=== PATIENT | female | born 2000 ===

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

== ENCOUNTER 2022-11-07 07:36 | Inpatient (IN) ==
[2022-11-07] MEDS ORDERED: OXYTOCIN 30 UNITS/500 ML BAG IV PRN ×2 (07:46)
[2022-11-07] MEDS ORDERED: LIDOCAINE 1% LOCAL 20 ML VIAL INFIL PRN (07:46)
[2022-11-07 08:14] LABS: Hemoglobin 10.2 g/dl (12.0-16.0); Mean Corpuscular Hemoglobin 26.6 pg (25.0-34.0); Mean Corpuscular Hgb Conc 32.9 g/dL (32.0-36.0); Mean Corpuscular Volume 80.7 fL (80.0-100.0); Mean Platelet Volume 10.9 fL (9.4-12.4); Platelet Count 293 K/uL (130-400); RDW Coefficient of Variation 14.8 % (11.5-14.5); RDW Standard Deviation 42.2 fL (36.4-46.3); Red Blood Count 3.84 M/uL (4.20-5.40); White Blood Count 8.04 K/ul (4.8-10.8)
--- NOTE | 2022-11-07 08:40 | History & Physical Report ---
Date of Service November 07, 2022 Assessment & Plan (1) Encounter for induction of labor: (2) Insulin controlled gestational diabetes mellitus (GDM) during : Plan - Patient admitted to labor and delivery for initiation of medical induction of labor - [address] De La Cruz on 11/06/22, recheck pending - Patient w/o evidence of contractions, thus oxytocin augmentation of labor will be started per protocol - Once contractions are progressing, will consider ROM - Will anticipate epidural as contractions arise - Labs pending, follow BSG Admission and Anticipated Discharge Date Admission Date: November 07, 2022 History of Present Illness Chief Complaint: Induction Primary Care Provider: Baylee Beckwith Hanny is a 22 year old female currently EGA 39 12/21 with TIA 11/10/22 determined by US presenting to L&D for induction of labor. Complications: GDM (on insulin), hx of gHTN, Rubella non-immune Reason for Induction/: GDM Movement: Yes Fluid Loss/ROM: None Bloody show/discharge: Small mucous discharge External FHT and uterine monitor: Category 1, tracing reactive, good FHT variability (acels w/o dcels), no contractions Last OB appointment: 11/06, regular care Ssis Ssrs Developer Hx: No hx of abnormal pap, hx of Chlamydia, no additional STIs Labs: Blood Type: A+ Antibody Screen: Negative Hg/Hct (today): Pending WBC/Plt (today): Pending Rubella: Non-Immune RPR: Non-reactive Gonorrhea: Negative Chlamydia: Negative HIV: Negative HbSAg: Negative GBS: Negative Cff-SMA: Low risk ROS: - Denies fever, chills, sweats - Denies dyspnea or pleuritic pain - Denies chest pain, palpitations, or pressure - Denies breast pain - Denies dysuria - Denies headache or visual changes Allergies Allergy/AdvReac Type Severity Reaction Status Date / Time No Known Drug Allergies Allergy Verified 11/06/22 13:09 Home Medications Medication Instructions Recorded Confirmed Type prenat.vits,dionisio,bsz-srex-ggumi 1 tab PO DAILY 04/13/19 11/06/22 History acetone (urine) test (Ketone Urine #50 ea 09/21/22 11/06/22 Rx Test strips) blood sugar diagnostic (OneTouch #150 ea 09/21/22 11/06/22 Rx Verio test strips) blood-glucose meter (OneTouch #1 ea 09/21/22 11/06/22 Rx Verio Reflect Meter) lancets 33 gauge (OneTouch Delica #150 ea 09/21/22 11/06/22 Rx Lancets) pen needle, diabetic 32 gauge x #50 ea 10/08/22 11/06/22 Rx 5/32" (BD Ria 2nd Gen Pen Needle) insulin NPH isoph U-100 human 100 4 unit (0.04 mL) subcut QPM #1 box 10/10/22 11/06/22 Rx unit/mL (3 mL) subcutaneous pen (Novolin N FlexPen) Patient History Medical History (Updated 11/07/22 @ 08:38 by Sal Buck DO) Gestational hypertension Surgical History S/P wisdom tooth extraction Family History Aunt No problems noted. Grandmother (Maternal) Anxiety Depression Endometriosis Father Drinking problem Hypertension Grandfather (Maternal) Cardiac disorder Diabetes Hypertension Brother Congenital heart disorder Down syndrome Hypertension Other Thyroid disease Social History (Updated 03/29/22 @ 13:59 by Melina Whiting) Smoking Status: Current every day smoker packs per day: 0.5; Cigarettes Per Day: 3-4 a day; Second Hand Exposure: Yes; Hx Alcohol Use: No Hx Substance Use: No Preferred Language: Jordanian Communication Ability: Effective Cost Estimating Engineer Required: No Beliefs That Will Affect Care: None marital status: Single marital status details: FOB: Trace ([birth year]) [phone] Current Living Situation: Family Current Living Situation Comment: lives with MOM, her firend, 2 brothers, step borther, step sister, bf, chil current occupational status: employed current occupation: Emotional support person Other Information That Helps Us Care for You: No Feels Safe at Home: Yes Safety Concerns: Feels Safe At This Time Assistive Devices: None Physical Exam Physical Exam: General: Alert, oriented. No acute distress. Cardiac: Regular rate and rhythm, no murmurs/rubs/gallops. Respiratory: Clear to auscultation bilaterally a/p, no wheezes/rales/rhonchi. No increased work of breathing. Symmetrical chest rise. No respiratory distress. Abdomen: Gravid; reactive FHTs; Position: Vertex by Pj Maneuver Pelvic: /-[address] De La Cruz on 11/06/22 Lower Extremities: No lower extremity edema or swelling. No deep calf pain. Yoshi's negative bilaterally. Supervising Physician Co-Signing Physician Notes patient seen with resident and agree with the above findings and plan. Resident Activity Tracking Resident Involvement: Resident Care Provided Care Provided: OB Delivery
[2022-11-07] MEDS: LACTATED RINGER'S 1,000 ML IV PRN ×3 (08:59→21:27)
[2022-11-07] MEDS ORDERED: BUPIVACAINE 0.25% 30 ML VIAL ONE (15:30)
[2022-11-07] MEDS ORDERED: ePHEDrine sulfate 50 MG/ML AMP ONE (15:30)
[2022-11-07] MEDS ORDERED: fentaNYL citrate 100 MCG/2 ML VIAL ONE (15:30)
[2022-11-07] MEDS ORDERED: LIDOCAINE 2%/EPINEPHRINE 1:200,000 20 ML SDV ONE (15:30)
[2022-11-07] MEDS ORDERED: SODIUM CHLORIDE 0.9% INJ 10 ML VIAL ONE (15:30)
[2022-11-07] MEDS ORDERED: fentaNYL 2MCG/ML ROPIVACAINE 1.25MG/ML 100 ML BAG EPI ONE (15:31)
--- NOTE | 2022-11-07 15:36 | Anesthesiology Consultation ---
Date of Service November 07, 2022 Assessment & Plan ASA ASA3 Proposed Anesthesia Anesthesia Type: Labor Epidural Risk / Benefits Reviewed With: PT / POA / Parent / Guardian, Accepts Plan and Informed Consent Obtained History Height/Weight Height: 5 ft 4 in Weight: 98.883 kg Allergies Allergy/AdvReac Type Severity Reaction Status Date / Time No Known Drug Allergies Allergy Verified 11/06/22 13:09 Medications Home Medications Medication Instructions Recorded Confirmed Last Taken prenat.vits,dionisio,tqj-prfn-decyn 1 tab PO DAILY 04/13/19 11/07/22 11/06/22 22:00 acetone (urine) test (Ketone Urine #50 ea 09/21/22 11/06/22 Unknown Test strips) blood sugar diagnostic (OneTouch #150 ea 09/21/22 11/06/22 Unknown Verio test strips) blood-glucose meter (OneTouch #1 ea 09/21/22 11/06/22 Unknown Verio Reflect Meter) lancets 33 gauge (OneTouch Delica #150 ea 09/21/22 11/06/22 Unknown Lancets) pen needle, diabetic 32 gauge x #50 ea 10/08/22 11/06/22 Unknown 532" (BD Ria 2nd Gen Pen Needle) insulin NPH isoph U-100 human 100 4 unit (0.04 mL) subcut QPM #1 box 10/10/2211/06/22 22:00 unit/mL (3 mL) subcutaneous pen (Novolin N FlexPen) Active Medications Generic Name Dose Route Start Last Admin Trade Name Freq PRN Reason Stop Dose Admin Lactated Ringer's 1,000 mls @ 125 mls/hr 11/07/22 07:46 11/07/22 16:00 Lr IV 11/09/22 07:45 125 mls/hr .Q8H PRN Infusion L&D Protocol Protocol Oxytocin 30 units in 500 mls @ 18 mls/hr 11/07/22 07:46 11/07/22 15:08 Pitocin IV 11/09/22 07:45 1.08 units/hr .Q24H PRN 18 mls/hr Labor Induction/Augmentation Titration Protocol 1.08 UNITS/HR Ropivacaine 100 ml 11/07/22 15:37 11/07/22 16:05 Fentanyl 2mcg/Ml Ropivacaine 1.25mg/Ml 100 Ml Bag EPI 11/08/22 15:36 100 ml PRN PRN Administration Pain R/T Labor Protocol Past Medical History Medical History Gestational hypertension Exercise / Class Metabolic Activity II 4-5 Yardwork/Stairs/Walk up hill Past Family History Family History Aunt No problems noted. Grandmother (Maternal) Anxiety Depression Endometriosis Father Drinking problem Hypertension Grandfather (Maternal) Cardiac disorder Diabetes Hypertension Brother Congenital heart disorder Down syndrome Hypertension Other Thyroid disease Past Surgical History Surgical History S/P wisdom tooth extraction Past Anesthesia History No Hx of Anesthesia Complications and No Family Hx of Anesthesia Complications History of PONV No Hx of PONV and No Hx of Motion Sickness Social History Smoking Status: Current every day smoker tobacco type: e-cigarettes Smoking cigarettes per day: 3-4 a day Hx Alcohol Use: No Alcohol type: wine Hx Substance Use: No substance use type: does not use Review of Systems denies fever/cough/ colds/ chest pain/ SOB/ TETO denies TETO Physical Exam Vital Signs Last Vital Signs Temp 37.0 C 11/07/22 15:10 Pulse 72 11/07/22 16:15 Resp 20 11/07/22 15:10 BP 138/65 11/07/22 16:12 Pulse Ox 99 11/07/22 16:15 ENMT Mouth: no TMJ abnormality and no dentition abnormality Thyromental Distance: > or= 3.5 Finger Breadths Mallampati Class: II Neck neck extension not limited Respiratory normal respiratory effort; no respiratory distress Auscultation: lungs clear to auscultation bilaterally Cardiovascular Rate/Rhythm: regular rate and regular rhythm Neurologic moves all extremities Psychiatric Orientation: alert and oriented x 3 Testing Laboratory Results 11/07/22 07:52 Blood Type A Positive 11/07/22 07:52 Antibody Screen NEGATIVE 11/07/22 07:52
[2022-11-07] MEDS ORDERED: NALBUPHINE HCL INJ 10 MG/ML AMP IV PRN (15:37)
[2022-11-07] MEDS ORDERED: ONDANSETRON INJ 2 MG/ML 2 ML VIAL IV PRN (15:37)
[2022-11-07] MEDS ORDERED: NALOXONE HCL 1 MG in SODIUM CHLORIDE 0.9% 1000ML 1,000 ML IV PRN (15:37)
[2022-11-07] MEDS ORDERED: NALOXONE HCL 0.4 MG/1 ML VIAL/CARP IV PRN (15:37)
[2022-11-07] MEDS ORDERED: diphenhydrAMINE 50 MG/ML VIAL IV PRN (15:37)
[2022-11-07] MEDS ORDERED: ePHEDrine sulfate 50 MG/ML AMP IV PRN (15:37)
[2022-11-07] MEDS: fentaNYL 2MCG/ML ROPIVACAINE 1.25MG/ML 100 ML BAG EPI PRN ×2 (16:05→22:50)
--- NOTE | 2022-11-07 16:42 | Labor Progress Brief Note ---
Date of Service November 07, 2022 Subjective Reason For Note: Routine Evaluation Assessment & Plan (1) Encounter for induction of labor: Plan: AROM clr, continue pitocin, Cat 1 tracing (2) Insulin controlled gestational diabetes mellitus (GDM) during : Admission and Anticipated Discharge Date Admission Date: November 07, 2022 Physical Exam Genitourinary: Manual OB Exam: + cervical dilation (2.5), + cervical effacement 70%, + station -1 and + amniotic fluid clear OB Exam Monitor Tracing: + external FHT monitor used, + external uterine monitor used, + category I and + normal FHT variability Results & Data ([facility]) Vital Signs (Past 12 Hours) Vital Signs Temp Pulse Resp BP Pulse Ox 11/07/22 16:35 74 100 11/07/22 16:36 72 135/78 11/07/22 16:30 98 11/07/22 16:30 79 11/07/22 16:30 80 136/73 11/07/22 16:25 78 99 11/07/22 16:24 76 126/64 11/07/22 16:20 77 99 11/07/22 16:21 74 133/70 11/07/22 16:15 72 99 11/07/22 16:12 83 138/65 11/07/22 16:10 73 99 11/07/22 16:11 78 138/63 11/07/22 16:08 107 H 141/61 H 11/07/22 16:06 81 138/67 11/07/22 16:05 101 H 99 11/07/22 16:04 82 132/78 11/07/22 16:02 83 142/84 H 11/07/22 16:00 85 142/86 H 98 11/07/22 15:58 97 H 154/89 H 11/07/22 15:56 90 141/88 H 11/07/22 15:55 80 98 11/07/22 15:54 85 139/84 11/07/22 15:50 90 99 11/07/22 15:10 37.0 C 66 20 137/83 11/07/22 12:03 20 11/07/22 12:03 36.9 C 20 11/07/22 14:46 93 H 113/80 11/07/22 13:08 68 132/77 11/07/22 07:46 20 11/07/22 07:46 36.5 C 11/07/22 11:56 83 117/70 11/07/22 11:09 86 129/71 11/07/22 09:30 122 H 95/56 L 11/07/22 08:58 86 111/63 Coding Level of Care Code None Diagnoses Encounter for induction of labor Z34.90 Insulin controlled gestational diabetes mellitus (GDM) during O24.414
--- NOTE | 2022-11-07 20:17 | Labor Progress Brief Note ---
Date of Service November 07, 2022 Subjective Reason For Note: Requested By Patient Assessment & Plan (1) Encounter for induction of labor: Plan: Progressing well. AROM clr, continue pitocin, Cat 1 tracing (2) Insulin controlled gestational diabetes mellitus (GDM) during : Admission and Anticipated Discharge Date Admission Date: November 07, 2022 Physical Exam Genitourinary: Manual OB Exam: + cervical dilation 5 cm, + cervical effacement 80%, + station -1 and + amniotic fluid clear OB Exam Monitor Tracing: + external FHT monitor used, + external uterine monitor used, + category I and + normal FHT variability Results & Data ([facility]) Vital Signs (Past 12 Hours) Vital Signs Temp Pulse Resp BP Pulse Ox 11/07/22 19:24 37.0 C 18 11/07/22 20:11 81 98 11/07/22 20:07 74 116/60 11/07/22 20:06 74 99 11/07/22 20:01 79 99 11/07/22 19:56 71 99 11/07/22 19:53 74 132/73 11/07/22 19:51 78 99 11/07/22 19:46 80 99 11/07/22 19:41 71 99 11/07/22 19:36 69 132/67 100 11/07/22 19:31 77 100 11/07/22 19:26 81 99 11/07/22 19:22 70 134/71 11/07/22 19:21 74 100 11/07/22 19:16 81 100 11/07/22 19:11 73 97 11/07/22 19:12 73 91 11/07/22 19:06 75 100 11/07/22 19:01 74 100 11/07/22 18:56 71 100 11/07/22 18:30 36.9 C 11/07/22 18:51 71 99 11/07/22 18:52 66 128/67 11/07/22 18:46 72 100 11/07/22 18:41 71 100 11/07/22 18:37 68 117/58 L 11/07/22 18:36 73 100 11/07/22 18:31 76 100 11/07/22 18:26 72 100 11/07/22 18:21 75 18 100 11/07/22 18:22 73 113/63 11/07/22 18:16 83 99 11/07/22 18:11 84 100 11/07/22 18:07 78 124/76 11/07/22 18:06 82 100 11/07/22 18:01 82 99 11/07/22 17:55 76 100 11/07/22 17:50 84 98 11/07/22 17:51 85 130/81 11/07/22 17:45 68 99 11/07/22 17:40 72 100 11/07/22 17:36 80 129/80 11/07/22 17:35 76 100 11/07/22 17:30 80 100 11/07/22 17:25 84 100 11/07/22 17:23 94 H 126/80 11/07/22 17:20 78 18 100 11/07/22 17:15 74 100 11/07/22 17:10 71 99 11/07/22 17:06 75 139/79 11/07/22 17:05 77 18 99 11/07/22 16:20 20 11/07/22 17:00 78 99 11/07/22 16:55 68 100 11/07/22 16:50 76 18 100 11/07/22 16:49 86 127/74 11/07/22 16:48 78 91 11/07/22 16:45 71 100 11/07/22 16:44 89 119/80 11/07/22 16:40 75 99 11/07/22 16:39 70 137/80 11/07/22 16:35 74 18 100 11/07/22 16:36 72 135/78 11/07/22 16:30 98 11/07/22 16:30 79 11/07/22 16:30 80 136/73 11/07/22 16:25 78 99 11/07/22 16:24 76 126/64 11/07/22 16:20 77 99 11/07/22 16:21 74 133/70 11/07/22 16:15 72 20 99 11/07/22 16:12 83 138/65 11/07/22 16:10 73 22 99 11/07/22 16:11 78 138/63 11/07/22 16:08 107 H 141/61 H 11/07/22 16:06 81 138/67 11/07/22 16:05 101 H 99 11/07/22 16:04 82 132/78 11/07/22 16:02 83 142/84 H 11/07/22 16:00 85 142/86 H 98 11/07/22 15:58 97 H 154/89 H 11/07/22 15:56 90 141/88 H 11/07/22 15:55 80 98 11/07/22 15:54 85 139/84 11/07/22 15:50 90 99 11/07/22 15:10 37.0 C 66 20 137/83 11/07/22 12:03 20 11/07/22 12:03 36.9 C 20 11/07/22 14:46 93 H 113/80 11/07/22 13:08 68 132/77 11/07/22 11:56 83 117/70 11/07/22 11:09 86 129/71 11/07/22 09:30 122 H 95/56 L 11/07/22 08:58 86 111/63 Coding Level of Care Code None Diagnoses Encounter for induction of labor Z34.90 Insulin controlled gestational diabetes mellitus (GDM) during O24.414
[2022-11-08] MEDS ORDERED: BENZOCAINE 20% AER SPR 82.5 GM CAN EXT PRN (01:19)
[2022-11-08] MEDS ORDERED: HYDROCORTISONE ACETATE 25 MG SUPP PR PRN (01:19)
[2022-11-08] MEDS ORDERED: OXYTOCIN 30 UNITS/500 ML BAG IV PRN (01:19)
[2022-11-08] MEDS ORDERED: DIPHTHERIA/TETANUS/PERTUSSIS 0.5mL SYR/VIAL (Age 7+yrs) IM ONE (01:19)
[2022-11-08] MEDS ORDERED: ACETAMINOPHEN 325 MG TAB PO PRN (01:19)
--- NOTE | 2022-11-08 01:45 | Anesthesia Procedure Note ---
Date of Service November 08, 2022 Anesthesia Post Epidural Note Vital Signs Vital Signs: Temp Pulse Resp BP Pulse Ox 36.5 C 88 18 131/81 97 11/07/22 21:05 11/08/22 01:41 11/07/22 21:30 11/08/22 01:38 11/08/22 01:41 Pain Intensity Lower Back: Pain Intensity: 10 Notes Mental Status: alert / awake / arousable and participated in evaluation Nausea / Vomiting: adequately controlled Pain: adequately controlled Airway Patency, RR, SpO2: stable & adequate BP & HR: stable & adequate Hydration State: stable & adequate Neuraxial Anesthesia: was administered and sensory block is resolving Anesthetic Complications: no major complications apparent and Pt Satisfied with anesthetic care Epidural: Removed without complications and With tip intact
[2022-11-08] MEDS: IBUPROFEN 600 MG TAB PO PRN ×5 (02:56→21:41)
[2022-11-08] MEDS ORDERED: SODIUM CHLORIDE 0.9% 250 ML IV PRN (04:19)
[2022-11-08] MEDS: FERROUS SULFATE 325 MG TAB PO SCH (08:44)
[2022-11-08] MEDS: DOCUSATE SODIUM 100 MG CAP PO SCH ×2 (08:44→21:41)
[2022-11-08] MEDS: PRENATAL VITAMIN 1 TAB PO SCH (08:44)
--- NOTE | 2022-11-08 10:30 | Delivery Summary ---
DATE OF SERVICE: 11/08/2022 PROCEDURE: Normal spontaneous vaginal delivery. SURGEON: Slava De La Cruz MD. PREOPERATIVE DIAGNOSES: 1. Single intrauterine at 39 weeks 5 days gestational age. 2. Insulin-dependent gestational diabetes. 3. Suspected macrosomia. POSTOPERATIVE DIAGNOSES: 1. Single intrauterine at 39 weeks 5 days gestational age. 2. Insulin-dependent gestational diabetes. 3. Suspected macrosomia. 4. Status post procedure. ESTIMATED BLOOD LOSS: 200 mL DRAINS: None. FLUIDS: Continuous lactated Ringer. URINE OUTPUT: Not measured. COMPLICATIONS: None. FINDINGS: Viable with weight and Apgars pending. DESCRIPTION OF PROCEDURE: The patient progressed to 10 cm dilated, 100% effaced, positive 2 station, pushed over intact perineum with epidural anesthesia and delivered a viable with weight and Apgars as noted above. Head of the delivered in ENRIQUE position, restituted right transverse. No nuchal cord was noted. I attempted to deliver the anterior shoulder, it did not spontaneously del iver. The patient was placed in Dwight position and suprapubic pressure was applied, which allowed for delivery of the anterior shoulder. Remaining body quickly followed and was delivered to the maternal abdomen. was not initially vigorous and due to the shoulder dystocia a short p eriod of stimulation was initiated, after which the cord was double clamped and cut. was kiah en over to the waiting nursery staff. was noted to be vigorous immediately upon delivery to the warmer. Attention was then turned to delivery of the placenta, which was delivered intact, 3-ves daniele cord, gentle cord traction. On inspection of perineum, vagina, cervix, there was noted to be no lacerations, bleeding was noted to be minimal and decision was made to end the case at that time. Bot h mother and were stable in the immediate post-delivery period. Needle, sponge, and instrume nt counts were correct at the completion of the case. Job ID: [id number]
--- NOTE | 2022-11-09 07:25 | Obstetrical Progress Note ---
Date of Service November 09, 2022 Assessment & Plan (1) care following vaginal delivery: Plan - Overall, feeling well and eating well today - Infant feeding going well without concern - Urinating and passing gas appropriately - Ambulating well in room - Pain controlled w/ Ibuprofen and Tylenol - Hgb 10.2 on 11/07 - Vitals stable and wnl - Routine PP care progressing well - Anticipate discharge @ 24-48 hours PP - Wants to discharge home today - Recommending f/u outpatient in 6 weeks Admission and Anticipated Discharge Date Admission Date: November 07, 2022 Supervising Physician Co-Signing Physician Notes Resident Physician Supervision Note: I interviewed and examined the patient. Discussed with Dr. Buck and agree with findings and plan as documented in the note. Any exceptions or clarifications are listed here: PPD#1 doing well. Would like to go home today. Reviewed DC instructions. Followup 6w office. Documented By: Alma Morales, DO Subjective Patient is a 22F who is PPD #1 following delivery at 39 4/7. She reports feeling well overall this morning. - Ambulation - well throughout room - Voiding/Doyle - independent voids, no dysuria or pressure - Gas/Stool - passing gas, no bowel movement - Diet - regular, no nausea or emesis - Lochia - diminishing, moderate amount - Infant Feeding Type - breast and formula feeding - Pain Level - 0/10, controlled with Ibuprofen Review of Systems - Denies fever, chills, sweats - Denies shortness of breath, difficulty breathing, chest pain, palpitations, chest pressure. - Denies breast pain. - Denies dysuria. - Denies headache or changes in vision. Physical Exam Physical Exam: General: Alert, oriented. No acute distress. Cardiac: RRR, normal S1/S2, no murmurs/rubs/gallops. Respiratory: Non-labored, CTAB, no wheezes/rales/rhonchi. Symmetric chest rise. Abdomen: Soft, nontender, nondistended. Bowel sounds present. Uterus: Uterine fundus firm, palpable 2 cm below umbilicus. Lower Extremities: No lower extremity edema or swelling. No deep calf pain. Yoshi's negative bilaterally. Results & Data ([facility]) Vital Signs (Past 12 Hours) Vital Signs Temp Pulse Resp BP Pulse Ox O2 Del Method 11/09/22 00:01 36.7 C 62 18 125/80 98 Room Air 11/08/22 19:37 37.1 C 84 20 137/82 99 Room Air Resident Activity Tracking Resident Involvement: Resident Care Provided Care Provided: OB Delivery
[2022-11-09] MEDS: PRENATAL VITAMIN 1 TAB PO SCH (07:35)
[2022-11-09] MEDS: DOCUSATE SODIUM 100 MG CAP PO SCH (07:35)
[2022-11-09] MEDS: FERROUS SULFATE 325 MG TAB PO SCH (07:35)
[2022-11-09] MEDS: IBUPROFEN 600 MG TAB PO PRN (07:35)
[2022-11-09] MEDS ORDERED: MEASLES, MUMPS & RUBELLA VIRUS VIAL SQ ONE (10:20)
[2022-11-09] MEDS ORDERED: bisacodyL 5 MG TABEC PO SCH (20:00)
[2022-11-10] MEDS ORDERED: bisacodyL 10 MG SUPP PR PRN
== END 2022-11-09 12:25 | disposition home or self-care (01) | DRG 807 ==
LOC: 4S1 07:36 → 4E2 11-08 04:28